=== PATIENT | female | born 1945 ===

== ENCOUNTER 2018-05-23 10:40 | Outpatient (CLI) | payer MEDICARE, OTHER ==
[2018-05-23 11:08] LABS: BASOPHILS % 0.9 (0.0-1.5); EOSINOPHILS % 3.3 % (0.0-6.8); MEAN CORPUSCULAR HEMOGLOBIN 30.6 pg (28.0-34.0); MEAN CORPUSCULAR VOLUME 88.3 fl (80.0-100.0); MONOCYTES % 6.6 % (0.0-11.0); NEUTROPHILS # 3.9 # k/uL (1.4-7.7)
[2018-05-23 11:56] LABS: eGFR (African) > 60; eGFR (Non-African) > 60
== END 2018-05-23 10:42 ==
LOC: LAB 10:40
PROVIDERS: ATTEND Family Medicine
DX: G62.9 Polyneuropathy, unspecified (principal); E78.2 Mixed hyperlipidemia
CPT/HCPCS: 36415; 80053; 80061; 82607; 82746; 84443; 85025